=== PATIENT | female | born 1960 | race Caucasian/White ===

== ENCOUNTER 2023-10-13 18:33 | Emergency (ER) | payer MEDICAID ==
[~2023-10-13] VITALS: Ht 162.6 cm; Wt 72.6 kg
[2023-10-13 19:06] LABS: BASOPHILS % (AUTO) 0.4 % (0.0-2.0); EOSINOPHILS % (AUTO) 0.8 % (0.0-7.0); HEMATOCRIT 38.5 % (31.2-41.9); LYMPHOCYTES # (AUTO) 1.8 K/uL (0.8-4.8); LYMPHOCYTES % (AUTO) 37.8 % (20.5-51.5); MEAN CORPUSCULAR HEMOGLOBIN 30.4 uug (24.7-32.8); MEAN CORPUSCULAR HGB CONC 34 g/dL (32.3-35.6); MEAN CORPUSCULAR VOLUME 90.1 fL (75.5-95.3); MONOCYTES # (AUTO) 0.2 K/uL (0.1-1.30); MONOCYTES % (AUTO) 4.3 % (0.0-11.0); NEUTROPHILS # (AUTO) 2.7 K/uL (1.8-8.9); NEUTROPHILS % (AUTO) 56.7 % (38.5-71.5); PLATELET COUNT (AUTO) 242 K/uL (179-408); RED BLOOD CELL COUNT(AUTO) 4.27 MIL/uL (3.63-4.92); RED CELL DISTRIBUTION WIDTH 13.7 % (12.3-17.7); WHITE BLOOD COUNT (AUTO) 4.7 K/uL (3.8-11.8)
[2023-10-13 19:14] LABS: DIFFERENTIAL COMMENT 1
[2023-10-13 19:15] LABS: CALCIUM 9.7 mg/dL (8.5-10.1); POTASSIUM 3.5 mmol/L (3.5-5.1)
[2023-10-13 19:27] LABS: ALBUMIN 3.8 g/dL (3.4-5.0); BILIRUBIN,TOTAL 0.4 mg/dL (0.2-1.0)
[2023-10-13 19:49] LABS: *BLOOD, URINE NEGATIVE (NEGATIVE); *CLARITY,URINE CLEAR (CLEAR); *COLOR,URINE YELLOW (YELLOW); *KETONES,URINE 1+ (NEGATIVE); LEUKOCYTE ESTERASE ,URINE NEGATIVE (NEGATIVE); NITRITE, URINE NEGATIVE (NEGATIVE); PH,URINE 6.5 (5.0-8.0); UGLUCOSE NEGATIVE (NEGATIVE)
[2023-10-13 19:54] LABS: *BILIRUBIN,URIN 1+ (NEGATIVE); *PROTEIN,URINE 3+ (NEGATIVE)
[2023-10-13 19:58] VITALS: O2SAT 99
== END 2023-10-13 21:08 | disposition home or self-care (01) ==
LOC: ER 18:35
DX: R10.13 Epigastric pain (principal)
CPT/HCPCS: 36415; 71045; 83605; 83690; 84484; 85025; 93005; A4606; A4663

== ENCOUNTER 2023-12-09 22:13 | Emergency (ER) | payer MEDICAID ==
[~2023-12-09] VITALS: Ht 165.1 cm; Wt 74.8 kg
[2023-12-09] MEDS ORDERED: ONDANSETRON ODT 4 MG TAB.RAPDIS ONE (22:43)
[2023-12-09] MEDS ORDERED: HYDROMORPHONE 2 MG/1 ML DISP.SYRIN ONE (22:43)
[2023-12-09] MEDS: ONDANSETRON ODT 4 MG TAB.RAPDIS SL ONE (22:48)
[2023-12-09] MEDS: HYDROMORPHONE 1 MG/1 ML DISP.SYRIN IM ONE (22:48)
[2023-12-09] MEDS ORDERED: ONDA4TAB5 PO (23:35)
[2023-12-09] MEDS ORDERED: HYDR-3980 PO (23:35)
[2023-12-09] MEDS ORDERED: diphenhydrAMINE 50 MG CAPSULE ONE (23:40)
[2023-12-09] MEDS ORDERED: METOCLOPRAMIDE HCL 10 MG/2 ML VIAL ONE (23:40)
[2023-12-09] MEDS: diphenhydrAMINE 50 MG CAPSULE PO ONE (23:46)
[2023-12-09] MEDS: METOCLOPRAMIDE HCL 10 MG/2 ML VIAL IM ONE (23:46)
[2023-12-09 23:58] VITALS: BP 126/77; O2SAT 96
[2023-12-12] MEDS ORDERED: OXYC-133 PO (19:21)
== END 2023-12-09 23:58 | disposition home or self-care (01) ==
LOC: ER 22:14
DX: S42.211A Unspecified displaced fracture of surgical neck of right humerus, initial encounter for closed fracture (principal); Z79.899 Other long term (current) drug therapy; Z60.2 Problems related to living alone; W18.39XA Other fall on same level, initial encounter; Y93.89 Activity, other specified; Y92.89 Other specified places as the place of occurrence of the external cause; Y99.8 Other external cause status
CPT/HCPCS: 29105; 73030; 73060; 96372; 99284; J1170; J2765; Q0163; Q0162